=== PATIENT | male | born 1995 | race Caucasian/White ===

== ENCOUNTER 2024-09-29 09:26 | Emergency (ER) | payer SELFPAY ==
--- NOTE | 2024-09-29 09:28 | ED_ITS ---
Discharge Plan Prescriptions Prescriptions: No Action ibuprofen 600 mg tablet 600 mg PO Print Language Print Language: Kyrgyz Discharge ED Provider: Luis Hair Adult HPI General Stated complaint: Stroke like symptoms Time Seen by Provider: 09/29/24 09:28 History of Present Illness HPI narrative: Please note that above description of symptoms, in this electronic medical record under categorization of recalled from ER triage doctor by RN are reflective of an initial nursing assessment, however, is not reflective of my full history and physical exam that was personally taken and clarified. Consequentially, this preceding description of symptoms, which may include the patient's categorized chief complaint in the EMR, do not reflect my personal clinical impression, and the ultimate description of history of present illness and patient stated complaints should be deferred to this section of the note. U nless stated otherwise or congruent with this section of the note, additional signs, symptoms, or incongruence should be interpreted as inaccurate with my clinical impression. Related Data Home Medications ?Medication ?Instructions ?Recorded ?Confirmed ibuprofen 600 mg tablet 600 mg PO 05/03/23 05/03/23 Allergies Allergy/AdvReac Type Severity Reaction Status Date / Time No Known Allergies Allergy Verified 05/03/23 09:44 [facility] Disclaimer: The information contained in this section may have been updated after the patient was seen, as this information can be updated by other users. Medical History (Updated 05/03/23 @ 09:51 by Kylie Harrison) No significant family history No active medical problems Surgical History (Updated 05/03/23 @ 09:51 by Kylie Harrison) No significant past surgical history Social History (Updated 05/03/23 @ 09:52 by Kylie Harrison) Smoking Status: Current every day smoker second hand exposure: No alcohol intake: never substance use type: denies use current occupational status: unemployed Travel in the last 8 weeks?: None household members: spouse and children housing: house marital status: Other Medical History Have you received the Pneumonia Vaccine: No ROS Obtained: Yes other As per HPI Physical Exam General General appearance: alert and in no apparent distress Head Head exam: atraumatic and normocephalic Eye Eye exam: Present normal appearance Neck Neck exam: Present normal inspection Chest Chest inspection: Present normal inspection and symmetric chest wall rise Respiratory Respiratory exam: Present normal lung sounds bilaterally; Absent respiratory distress Cardiovascular Cardiovascular exam: Present regular rate and normal rhythm Abdominal Exam Abdominal exam: Present soft Neurological Exam Neurological exam: Present alert and oriented X3 Psychiatric Psychiatric exam: Present normal affect and normal mood Skin Skin exam: Present warm and dry Medical Decision Making Medical Records Medical records reviewed: Yes I reviewed the patient's medical records. Screening: Per USPSTF and CDC recommendations, given the prevalence of disease in our region, it is our hospital?s policy to screen for HIV and viral Hepatitis for all patients aged 18 and over and those with ongoing risk factors. Ethan Inquiry Pt receiving controlled substance: No Medical Decision Narrative: Patient with history and exam per above presenting for evaluation of Diagnoses considered include ED workup and treatment included: Labs were independently interpreted by me, significant for Imaging was independently visualized and interpreted by me, significant for Please refer to radiology report for full details. My clinical impression at this time is most consistent with I discussed my clinical impression with patient and answered all questions. At this time, the evidence for any other entities in the differential is insufficient to warrant any further testing or ED observation. This was explained to the patient. The patient was advised that persistent or worsening symptoms require further evaluation. Critical Care Critical Care Time Critical Care Time: No
[2024-09-29 09:31] VITALS: BP 149/82; PULSE 81; RESP 15; TEMP 36.8; O2SAT 98; BMI 20.3
--- OUTSIDE RECORDS SUMMARY | 2024-09-29 09:35 | XMS_ITS | Referral Summary ---
Author Organization [facility] In iatives Address [address] [place] [address] Care Team Providers Care Environmental Health Officer Name Role Phone Unavailable Primary Care Provider Unavailabl e Allergies No known active allergies Medications No known medications Active Problems Problem Noted Date Diagnosed Date Neck pain 05/01/2023 Social History Tobacco Use Types Packs/Day Years Used Date Smoking Tobacco: Never Assessed Interpersonal Safety Answer Date Record ed Family or friends hurt you Not on file 05/01 Family or friends insult you Not on file 12/2023 Family or friends threaten you Not on file 0 05/01/2023 Family or friends scream or curse at you Not on file 05/01/2023 Housing Stability Answer Date Recorded Living situation today Not on file Living situation problems Not on file 2023 Family and Community Support Answer Rom e Recorded Help with Day to Day Activities Not on file 05/01/2023 Feeling Lonely or Isolated Not on file 05/01 Educational Attainment Answer Date Rigo rded Speak language other than Jamaican at home Not on file 05/01/2023 Want help with school or training Not on file 05/01/2023 Depression Answer Date Recorded PHQ-2 Risk Not on file 05/01/2023 Disabilities Answer Date Recorded Difficulty concentrating Not on file 024 Difficulty doing errands alone Not on file 0 05/01/2023 Substance Use Answer Date Recorded Used prescription meds for non-medical reasons N ot on file 05/01/2023 Used illegal drugs past 12 months Not on file 05/01/2023 Sex and Gender Information Value Date Recorded Sex Assigned at Not on file 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
--- OUTSIDE RECORDS SUMMARY | 2024-09-29 09:35 | XMS_ITS | Clinical Summary ---
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
[2024-09-29 10:00] VITALS: BP 154/98; PULSE 67; O2SAT 97
--- NOTE | 2024-09-29 10:21 | HMH.EDGENADL ---
Discharge Plan Disposition Patient Disposition: Home, Self-Care Condition: Good Prescriptions Prescriptions: New prednisone 20 mg tablet 60 mg PO DAILY 7 Days Qty: 21 0RF Rx Instructions: Please take 60 mg (3 tablets) daily for 1 week. valacyclovir 1 gram tablet 1,000 mg PO TID 7 Days Qty: 21 0RF Rx Instructions: Please take 1 tablet daily for 1 week with food. Referrals Follow up/Referrals: Provider,Referral, MD [Primary Care Provider, Medical] - See instructions Activity Restrictions/Add. Instructions Additional Instructions/Restrictions: Please take all medicine as prescribed, please follow-up with garment liner (my eye doctor) here in [facility] in the upcoming days/1 week. Please utilize artificial tears 1 hour while you are awake, utilize ophthalmic ointment once daily at night prior to bed, I will need to be taped shut at night, or wear protective glasses/goggles, please follow-up with your PCP in the upcoming days/weeks, and return to the emergency department with any worsening signs or symptoms. Clinical Impressions Clinical Impression: Right-sided Herbert's palsy Instructions Patient Instructions: DI for [place] Palsy Print Language Print Language: Estonian Discharge ED Provider: Luis Hair General Adult HPI <NING Harper - Last Filed: 09/29/24 10:36> General Chief complaint: Weakness Stated complaint: Stroke like symptoms Time Seen by Provider: 09/29/24 09:28 Mode of Arrival: Ambulatory Source of Information: Patient Description of Symptoms (Recalled from ER Triage Doc. by RN): Patient states he has been having numbness and drooping of right side of face since 09/25/24. Denies any other neuro symptoms, is able to move arm and legs appropriately and denies numbness to arms and legs. History of Present Illness HPI narrative: 9-year-old male presents the emergency department with right-sided facial weakness/facial droop, for the last 4 days, patient denies any fever chills chest pain shortness of breath nausea vomiting constipation diarrhea, no headache, does admit to some blurry vision , at times only right eye, denies any urinary bladder or bowel dysfunction, denies any upper or lower extremity weakness, no numbness or tingling, patient is a current smoker, denies any alcohol or drug use, has no other relevant past medical history, denies any previous TIA/CVA, no headache, no other blurry vision or visual disturbance in the other eye. 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 Initial triage vitals are unremarkable. Denies any recent environmental exposures to include recent tick bite/exposure. Onset (ago): day(s) Related Data Previous Rx's ?Medication ?Instructions ?Recorded prednisone 20 mg tablet 60 mg (3 x 20 mg) PO DAILY 7 days 09/29/24 #21 tabs valacyclovir 1 gram tablet 1,000 mg PO TID 1 week #21 tabs 09/29/24 Allergies Allergy/AdvReac Type Severity Reaction Status Date / Time No Known Allergies Allergy Verified 09/29/24 09:37 [facility] <NING Harper - Last Filed: 09/29/24 10:36> [facility] Disclaimer: The information contained in this section may have been updated after the patient was seen, as this information can be updated by other users. Medical History (Updated 09/29/24 @ 10:31 by NING Harper) No significant family history No active medical problems Surgical History No significant past surgical history Social History Smoking Status: Current every day smoker second hand exposure: No alcohol intake: never substance use type: denies use current occupational status: unemployed Travel in the last 8 weeks?: None household members: spouse and children housing: house marital status: Have you lived/traveled outside [place] in past 30 days?: No Contact w/someone who lives/traveled outside US past 30 days?: No Exposure to someone with infectious disease in past 14 days?: No Do you have a fever (greater than 100.4 F or 38 C)?: No Have you tested positive for COVID-19?: No Exposed to someone with COVID-19 in past 14 days?: No Do you have a sore throat?: No Do you have a cough?: No Do you have any weakness?: No Do you have any diarrhea?: No Are you experiencing any unusual bleeding?: No Do you have any muscle aches/pain?: No Do you have any abdominal pain?: No Are you experiencing loss of taste or smell?: No Other Medical History Have you received the Pneumonia Vaccine: No <NING Harper - Last Filed: 09/29/24 10:36> ROS Obtained: Yes All systems reviewed & no additional complaints except as documented Physical Exam <NING Harper - Last Filed: 09/29/24 10:36> General General appearance: alert and in no apparent distress Head Head exam: atraumatic and normocephalic Eye Eye exam: Present PERRL and EOMI ENT ENT exam: Present mucous membranes moist Neck Neck exam: Present normal inspection Chest Chest inspection: Present normal inspection and symmetric chest wall rise Respiratory Respiratory exam: Present normal lung sounds bilaterally; Absent respiratory distress Cardiovascular Cardiovascular exam: Present regular rate and normal rhythm Abdominal Exam Abdominal exam: Present soft; Absent tenderness Extremities Exam Extremities exam: Present normal inspection Neurological Exam Neurological exam: Present alert, oriented X3 and other (There is right-sidedUnilateral facial paralysis, with no forehead sparing, ability to raise the eyebrow on the right affected side, drooping of the angle of the mouth on the right side, and incomplete closure of the eyelids on the right affected side, negative for any symptoms of the left, no numbne); Absent CN II-XII intact Psychiatric Psychiatric exam: Present normal affect Skin Skin exam: Present warm and dry Medical Decision Making <NING Harper - Last Filed: 09/29/24 10:36> Medical Records Medical records reviewed: Yes I reviewed the patient's medical records. Screening: Per USPSTF and CDC recommendations, given the prevalence of disease in our region, it is our hospital?s policy to screen for HIV and viral Hepatitis for all patients aged 18 and over and those with ongoing risk factors. Ethan Inquiry Pt receiving controlled substance: No Ethan was queried for this patient: No Vital Signs: 09/29/24 09:31 09/29/24 10:00 09/29/24 10:44 Temperature 98.2 F 98.2 F Temperature Source Oral Oral Pulse Rate 67 68 Pulse Rate [Right Radial] 81 Respiratory Rate 15 18 Blood Pressure 154/98 H 156/98 H Blood Pressure [Right Arm] 149/82 H Blood Pressure Mean [Right Arm] 104 Blood Pressure Source Automatic Cuff Blood Pressure Source [Right Arm] Automatic Cuff Blood Pressure Position Sitting Blood Pressure Position [Right Arm] Sitting 02 Sat by Pulse Oximetry 98 97 Oxygen Delivery Method Room Air Room Air Orders (Tests/Meds): ED MEDICATIONS Discontinued Medications Generic Name Dose Route Start Last Admin Trade Name Carlos PRN Reason Stop Dose Admin Erythromycin 1 gm 09/29/24 10:35 09/29/24 10:42 Erythromycin Base 1 Gm Oint...G. OP 09/29/24 10:36 1 gm ONCE ONE Administration Medical Decision Narrative: 29-year-old male presents emergency department with right-sided facial weakness, blurry vision of the right eye, differential diagnose include but not limited to Herbert's palsy, TGN, HSV, parotitis among others I discussed this patient's case in depth with the attending physician Dr. Hair Clinically the patient presents with Herbert's palsy with unilateral facial paralysis, inability to raise eyebrow on the right, with remote history of HSV 1, no other symptoms to include recent tick exposure, no headache, no other further neurological symptoms that would warrant advanced imaging/TIA/CVA workup at this time, patient is also outside the window as the symptoms have been going on for 4 days. Will treat patient for clinical Herbert's palsy, and will prescribe patient erythromycin ophthalmic ointment, prednisone 60 mg daily 1 week, valacyclovir 1000 mg 3 times daily for 1 week, with artificial tears and taping the affected eye with ophthalmology/optometry follow-up in the next several days, as well as PCP follow-up, patient was given strict ED return precautions, patient and family voiced understanding and agreement with current treatment plan/discharge plan. Upon discharge, patient has normal vital signs, and no acute neurological deficit that warrant further TIA/CVA stroke workup, has clinical/classic presentation of Herbert's palsy with right-sided face affected. <Luis Hair MD - Last Filed: 09/30/24 09:10> Vital Signs: 09/29/24 09:31 09/29/24 10:00 09/29/24 10:44 Temperature 98.2 F 98.2 F Temperature Source Oral Oral Pulse Rate 67 68 Pulse Rate [Right Radial] 81 Respiratory Rate 15 18 Blood Pressure 154/98 H 156/98 H Blood Pressure [Right Arm] 149/82 H Blood Pressure Mean [Right Arm] 104 Blood Pressure Source Automatic Cuff Blood Pressure Source [Right Arm] Automatic Cuff Blood Pressure Position Sitting Blood Pressure Position [Right Arm] Sitting 02 Sat by Pulse Oximetry 98 97 Oxygen Delivery Method Room Air Room Air Orders (Tests/Meds): ED MEDICATIONS Discontinued Medications Generic Name Dose Route Start Last Admin Trade Name Carlos PRN Reason Stop Dose Admin Erythromycin 1 gm 09/29/24 10:35 09/29/24 10:42 Erythromycin Base 1 Gm Oint...G. OP 09/29/24 10:36 1 gm ONCE ONE Administration Medical Decision Narrative: 29-year-old male presents emergency department with right-sided facial weakness, blurry vision of the right eye, differential diagnose include but not limited to Herbert's palsy, TGN, HSV, parotitis among others I discussed this patient's case in depth with the attending physician Dr. Hair Clinically the patient presents with Herbert's palsy with unilateral facial paralysis, inability to raise eyebrow on the right, with remote history of HSV 1, no other symptoms to include recent tick exposure, no headache, no other further neurological symptoms that would warrant advanced imaging/TIA/CVA workup at this time, patient is also outside the window as the symptoms have been going on for 4 days. Will treat patient for clinical Herbert's palsy, and will prescribe patient erythromycin ophthalmic ointment, prednisone 60 mg daily 1 week, valacyclovir 1000 mg 3 times daily for 1 week, with artificial tears and taping the affected eye with ophthalmology/optometry follow-up in the next several days, as well as PCP follow-up, patient was given strict ED return precautions, patient and family voiced understanding and agreement with current treatment plan/discharge plan. Upon discharge, patient has normal vital signs, and no acute neurological deficit that warrant further TIA/CVA stroke workup, has clinical/classic presentation of Herbert's palsy with right-sided face affected. I was consulted by the HONORIO, and we discussed the complexity of the problems being addressed.I approved the treatment and management plan for this patient?s care in the Emergency Department, thus performing a substantive portion of the medical decision making.Signed, Luis Hair MD MBA Critical Care <NING Harper - Last Filed: 09/29/24 10:36> Critical Care Time Critical Care Time: No
[2024-09-29] MEDS: ERYTHROMYCIN BASE 1 GM OINT...G. OP (10:42)
[2024-09-29 10:44] VITALS: BP 156/98; PULSE 68; RESP 18; TEMP 36.8; O2SAT 97
== END 2024-09-29 10:44 | disposition home or self-care (01) ==
PROVIDERS: Emergency Provider Emergency Medicine
DX: G51.0 Bell's palsy (principal); R29.818 Other symptoms and signs involving the nervous system; F17.210 Nicotine dependence, cigarettes, uncomplicated
CPT/HCPCS: 99283